=== PATIENT | male | born 1940 | race Caucasian/White ===

== ENCOUNTER 2016-08-06 11:35 | Outpatient (CLI) | payer MEDICARE, OTHER | END 2016-08-06 11:36 | disposition home or self-care (01) | DX: I95.1 Orthostatic hypotension (principal); I35.0 Nonrheumatic aortic (valve) stenosis ==

== ENCOUNTER 2016-09-22 13:50 | Outpatient (CLI) | payer MEDICARE, OTHER | END 2016-09-22 13:51 | disposition home or self-care (01) | DX: R00.2 Palpitations (principal); R42 Dizziness and giddiness ==

== ENCOUNTER 2017-06-03 16:32 | Outpatient (CLI) | payer MEDICARE, OTHER | END 2017-06-03 16:33 | disposition critical access hospital (66) | LOC: EMS 16:32 | PROVIDERS: ATTEND Surgery | DX: M79.621 Pain in right upper arm (principal); R11.0 Nausea; R20.0 Anesthesia of skin; W10.9XXA Fall (on) (from) unspecified stairs and steps, initial encounter; Y92.414 Local residential or business street as the place of occurrence of the external cause | CPT/HCPCS: A0425; A0427 ==

== ENCOUNTER 2017-06-03 17:15 | Emergency (ER) | payer MEDICARE, OTHER ==
--- NOTE | 2017-06-03 17:27 | ED Physician Documentation ---
History of Present Illness - Stated complaint Stated Complaint: GLF - History obtained from History obtained from: Patient, EMS - History of Present Illness Timing: How many hours ago (1) Pain level max: 8 Pain level now: 4 Improved by: rest Worsened by: moving - Additonal information Additional information: Patient is a 77-year-old gentleman who tripped and fell coming out of the store in [place], landed on the right arm and now has pain and deformity to the right upper arm. He was brought to the emergency department by EMS. Received 250 mcg of fentanyl en route. Pain is well controlled. Did not strike his head. No loss of consciousness. No other complaints of pain. Review of Systems Cardiac: denies: Chest pain / pressure Respiratory: denies: Cough GI: denies: Abdominal Pain, Vomiting Musculoskeletal: denies: Neck pain, Back pain Neurologic: denies: Focal weakness, Numbness, Syncope, Seizure, Confused, Headache, Head injury, LOC PD PAST MEDICAL HISTORY - Past Medical History Past Medical History: Yes Cardiovascular: Hypertension Respiratory: Sleep apnea : Benign prostate hypertrophy Psych: Depression, Anxiety Musculoskeletal: Osteoarthritis Derm: None - Past Surgical History HEENT: Tonsil/Adenoidectomy - Present Medications Home Medications: Ambulatory Orders Medication Instructions Recorded Confirmed Aspirin [Aspir 81] 81 mg PO DAILY 12/12/13 06/03/17 Doxazosin Mesylate 8 mg PO DAILY 12/12/13 06/03/17 FLUoxetine [PROzac] 20 mg PO DAILY 12/12/13 06/03/17 Lisinopril 20 mg PO DAILY 12/12/13 06/03/17 Hydrocodone/Acetaminophen 1 - 2 each PO Q6H PRN #14 tablet 06/03/17 [Hydrocodon-Acetaminophen 5-325] - Allergies Allergies/Adverse Reactions: Allergies Allergy/AdvReac Type Severity Reaction Status Date / Time No Known Drug Allergies Allergy Verified 12/12/13 11:10 PD ED PE NORMAL - Vitals Vital signs reviewed: Yes - General General: Alert and oriented X 3, No acute distress, Well developed/nourished - HEENT HEENT: Atraumatic, PERRL, EOMI, Ears normal, Moist mucous membranes, Other ( small abrasion on the chin.) - Neck Neck: Supple, no meningeal sign, No bony TTP, Other (FROM without pain) - Cardiac Cardiac: RRR, Strong equal pulses - Respiratory Respiratory: No respiratory distress, Clear bilaterally - Abdomen Abdomen: Soft, Non tender, Non distended - Back Back: No spinal TTP - Derm Derm: Warm and dry - Extremities Extremities: Other (TTP along the length of the R humerus. TTP about the R shoulder. NVI including radial artery and axillary nerve. deformity present at the shoulder. Abrasion to the R knee. no bony tenderness. normal gait. ) - Neuro Neuro: Alert and oriented X 3, safety advisor 2-12 intact, No motor deficit, No sensory deficit, Normal speech Eye Opening: Spontaneous Motor: Obeys Commands Verbal: Oriented GCS Score: 15 - Psych Psych: Normal mood, Normal affect Results - Vitals Vitals: Vital Signs - 24 hr 12//17 17:24 Temperature 36.4 C L Heart Rate 57 L Respiratory 15 Rate Blood Pressure 112/97 H O2 Saturation 96 Oxygen O2 Source Room air - Rads (name of study) R shoulder xray Radiology: Prelim report reviewed, EMP read contemporaneously, See rad report ( Anterior shoulder dislocation. Possible Hill-Sachs fracture of the humeral head) R shoulder xray 2 Radiology: Prelim report reviewed, EMP read contemporaneously, See rad report ( Interval reduction right anterior shoulder dislocation. ) Procedures - Reduction Body part reduced: Right, Shoulder Fracture or dislocation: Dislocation Anesthesia: Dilaudid (1mg) Shoulder reduction technique: Other (crow technique) Reduction aftercare: NV intact, Xray confirms reduction, Alignment improved, Sling, Patient tolerated well PD MEDICAL DECISION MAKING - ED course Complexity details: reviewed results, re-evaluated patient, considered differential, d/w patient, d/w family ED course: Patient is a 77-year-old gentleman who tripped and fell today on the street. Sustained a dislocation of the right shoulder. This was reduced. Tolerated well. Neurovascularly intact including the axillary nerve after reduction. Placed in a sling and will have him follow-up with orthopedics. Pain well controlled. Will prescribe pain medication for home. No evidence of intracranial hemorrhage, skull fracture or spinal fracture. Will continue supportive care and follow-up with orthopedics and his doctor. Patient counseled regarding signs and symptoms for which I believe and urgent re- evaluation would be necessary. Patient with good understanding of and agreement to plan and is comfortable going home at this time This document was made in part using voice recognition software. While efforts are made to proofread this document, sound alike and grammatical errors may occur. Departure - Departure Disposition: 01 Home, Self Care Clinical Impression: Shoulder dislocation Qualifiers: Encounter type: initial encounter Laterality: right Qualified Code(s): S43.004A - Unspecified dislocation of right shoulder joint, initial encounter Knee abrasion Qualifiers: Encounter type: initial encounter Laterality: right Qualified Code(s): S80.211A - Abrasion, right knee, initial encounter Abrasion of chin Qualifiers: Encounter type: initial encounter Qualified Code(s): S00.81XA - Abrasion of other part of head, initial encounter Condition: Good Instructions: ED Dislocation Shoulder Redu Follow-Up: Erin Ruelas ARNP [Primary Care Provider] - Within 1 week [facility] [Provider Group] - Within 1 week (call for an appointment) Prescriptions: Hydrocodone/Acetaminophen [Hydrocodon-Acetaminophen 5-325] 1 - 2 each PO Q6H PRN #14 tablet PRN Reason: pain Comments: Use the sling until released by orthopedics. Return if you worsen. Do not drink alcohol or drive while on narcotic pain medicine. Note that many narcotic pain relievers also contain tylenol/acetaminophen. Please ensure that your total dose of acetaminophen from all sources does not exceed 3 grams (3000mg) per day. You may constipated on this medication, take a stool softener such as "Colace" twice a day while you are on it. Also recommend a rxdm-nrl-ksllczs laxative such as senna or MiraLAX any day that you do not have a bowel movement. If you received narcotic pain medication in the emergency department, do not drive or operate machinery for the next 24 hours. Discharge Date/Time: 06/03/17 18:38
[2017-06-03 17:28] VITALS: BP 112/97
[2017-06-03] MEDS ORDERED: HYDROmorphone 1 MG/ML SYRINGE IVP STA (17:33)
--- NOTE | 2017-06-03 17:56 | XRAY Preliminary Report ---
Exam: XR SHOULDER 2 VIEW RT IMPRESSION: Anterior shoulder dislocation. Possible Hill-Sachs fracture of the humeral head. [facility] SITE ID: [id number]
--- NOTE | 2017-06-03 17:58 | XRAY Report ---
EXAM: RIGHT SHOULDER RADIOGRAPHY EXAM DATE: 06/03/2017 05:46 PM. CLINICAL HISTORY: Fall, R arm pain. COMPARISON: 01/20/2012. TECHNIQUE: 2 views. FINDINGS: Bones: Suspected Hill-Sachs fracture of the humeral head. Joints: Anterior humeral dislocation. Degenerative changes of the acromioclavicular joint. Soft tissues: The visualized hemithorax is unremarkable. No soft tissue swelling. IMPRESSION: Anterior shoulder dislocation. Possible Hill-Sachs fracture of the humeral head. [facility] Referring Provider Line: [phone] SITE ID: [id number]
--- NOTE | 2017-06-03 18:20 | XRAY Preliminary Report ---
Exam: XR SHOULDER 2 VIEW RT IMPRESSION: Interval reduction right anterior shoulder dislocation. [facility] SITE ID: [id number]
--- NOTE | 2017-06-03 18:23 | XRAY Report ---
EXAM: RIGHT SHOULDER RADIOGRAPHY EXAM DATE: 06/03/2017 06:09 PM. CLINICAL HISTORY: Post reduction. COMPARISON: 06/03/2017. TECHNIQUE: 2 views. FINDINGS: Bones: No acute fracture. Joints: Interval reduction right anterior shoulder dislocation. Soft Tissues: No unexpected soft tissue findings. IMPRESSION: Interval reduction right anterior shoulder dislocation. [facility] Referring Provider Line: [phone] SITE ID: [id number]
== END 2017-06-03 18:38 | disposition home or self-care (01) ==
LOC: EDUNIT# → ED 17:15 → SUPCPDRO 17:15 → ED 18:38
DX: S43.014A Anterior dislocation of right humerus, initial encounter (principal); S80.211A Abrasion, right knee, initial encounter; S00.81XA Abrasion of other part of head, initial encounter; W10.8XXA Fall (on) (from) other stairs and steps, initial encounter; Y92.512 Supermarket, store or market as the place of occurrence of the external cause; I10 Essential (primary) hypertension; Z79.82 Long term (current) use of aspirin
CPT/HCPCS: 23650; 73030; 96374; 99283; 99284; J1170

== ENCOUNTER 2017-07-21 15:26 | Outpatient (CLI) | payer MEDICARE, OTHER ==
--- NOTE | 2017-07-23 13:05 | MRI Report ---
EXAM: RIGHT SHOULDER MRI WITHOUT CONTRAST EXAM DATE: 07/21/2017 04:36 PM. CLINICAL HISTORY: Right shoulder pain. Dislocation on 06/03/2017. COMPARISON: 06/03/2017 radiograph, MRI 06/15/2017. TECHNIQUE: Multiplanar, multisequence T1-weighted and fluid-sensitive sequences of the shoulder witho ut contrast. Other: None. FINDINGS: Acromioclavicular Region: The acromion is type II. Moderate acromioclavicular osteoarthropathy as lc denced by bony hypertrophy of the distal clavicle and a small effusion. The coracoacromial and coraco clavicular ligaments are intact. A mild amount of fluid is in the subacromial/subdeltoid bursa. Glenohumeral Region: No subluxation. No effusion or loose bodies. A partial-thickness undersurface te ar in the posterior superior labrum can be seen on series 701, image 14. The articular cartilage is m inimally thin. The glenohumeral ligaments and joint capsule are unremarkable. Bone Marrow: The patient has Hill-Sachs deformity that is worsened since the prior examination. Musculature/Rotator Cuff: The subscapularis tendon is unremarkable. The supraspinatus tendon has a wo rsened complex tear since the prior examination. The anterior 1 cm of the tendon has a full-thickness tear which is 1.1 cm in width. The posterior portion of the tendon has a partial-thickness, joint-si ded tear that is 1.4 cm in length and 60% in thickness (701/10). The anterior infraspinatus tendon constantino s a partial-thickness, joint-sided tear that is 1.5 cm in width and 1.3 cm in length. It is 50% in th ickness. This tear has worsened. The teres minor tendon is intact. No fatty atrophy. The patient has a benign 3.3-cm lipoma within the posterior deltoid muscle. Biceps Tendon: The intraarticular biceps tendon is irregular and this is new compared to prior examin ation. Other: The subcutaneous tissues are unremarkable. IMPRESSION: 1. Moderate acromioclavicular osteoarthropathy. 2. Mild subacromial/subdeltoid bursitis. 3. Small partial tear of the superior labrum. 4. Worsened Hill-Sachs deformity. 5. Worsened tears of the supraspinatus and infraspinatus tendons. 6. New mild biceps tendinosis. [facility] MUSCULOSKELETAL RADIOLOGY SECTION Referring Provider Line: [phone] SITE ID: [id number]
== END 2017-07-21 15:27 | disposition home or self-care (01) ==
LOC: DI 15:26
PROVIDERS: ATTEND Orthopaedic Surgery
DX: M19.011 Primary osteoarthritis, right shoulder (principal); M75.51 Bursitis of right shoulder; S43.491A Other sprain of right shoulder joint, initial encounter; M21.821 Other specified acquired deformities of right upper arm; M75.101 Unspecified rotator cuff tear or rupture of right shoulder, not specified as traumatic; M67.88 Other specified disorders of synovium and tendon, other site

== ENCOUNTER 2017-08-17 11:46 | Outpatient (CLI) | payer MEDICARE, OTHER | END 2017-08-17 11:47 | disposition home or self-care (01) | LOC: DI 11:46 | PROVIDERS: ATTEND Registered Nurse | DX: I35.0 Nonrheumatic aortic (valve) stenosis (principal); I51.7 Cardiomegaly; I77.810 Thoracic aortic ectasia | CPT/HCPCS: 93306 ==

== ENCOUNTER 2018-09-15 13:18 | Outpatient (CLI) | payer MEDICARE, OTHER ==
--- NOTE | 2018-09-17 09:45 | Ultrasound Report ---
Reason: BENIGN PROSTATIC HYPERPLASIA WITH URINARY OBSTRUCT Procedure Date: 09/15/2018 Accession Number: [id number] / [id number] Procedure: US - Retroperitoneal CPT Code: FULL RESULT: EXAM: RENAL ULTRASOUND EXAM DATE: 09/15/2018 01:59 PM. CLINICAL HISTORY: Benign prostatic hyperplasia with urinary obstruct. COMPARISON: ABDOMEN/PELVIS W/ 07/03/2015 10:57 AM. TECHNIQUE: Real-time scanning was performed with static images obtained. FINDINGS: Right Kidney: 10.9 x 5.3 x 5.4 cm. Scattered hyperechoic foci present in the right renal pelvis with no significant posterior acoustic shadowing. No hydronephrosis or contour-deforming renal mass. Left Kidney: 12.3 x 5.3 x 5.4 cm. Scattered hyperechoic foci present in the left renal pelvis with no significant posterior acoustic shadowing. No hydronephrosis or contour-deforming renal mass. Bladder: Bilateral jets seen. The prevoid bladder volume was 145.7 cc. The postvoid bladder volume was 20.5 cc. Other: Markedly enlarged prostate gland measuring 6.9 x 5.4 x 5.9 cm, 115.4 cc with significant mass-effect upon the bladder base. No definite mass noted. IMPRESSION: 1. No renal mass or hydronephrosis. Possible nonobstructing bilateral renal stones versus vascular calcifications. 2. Normal bladder. 3. Marked prostate enlargement with mass-effect upon the bladder base. [facility]
== END 2018-09-15 13:19 | disposition home or self-care (01) ==
LOC: DI 13:18
PROVIDERS: ATTEND Urology
DX: N40.1 Benign prostatic hyperplasia with lower urinary tract symptoms (principal); N13.8 Other obstructive and reflux uropathy; N39.0 Urinary tract infection, site not specified; Z87.898 Personal history of other specified conditions
CPT/HCPCS: 76770

== ENCOUNTER 2018-09-25 12:42 | Outpatient (CLI) | payer MEDICARE, OTHER | END 2018-09-25 12:43 | disposition home or self-care (01) | LOC: DI 12:42 | PROVIDERS: ATTEND Registered Nurse | DX: I35.0 Nonrheumatic aortic (valve) stenosis (principal); I07.1 Rheumatic tricuspid insufficiency | CPT/HCPCS: 93306 ==

== ENCOUNTER 2018-10-11 15:10 | Outpatient (CLI) | payer MEDICARE, OTHER | END 2018-10-11 15:11 | disposition home or self-care (01) | LOC: RT 15:10 | PROVIDERS: ATTEND Internal Medicine Cardiovascular Disease | DX: I10 Essential (primary) hypertension (principal) | CPT/HCPCS: 93005 ==

== ENCOUNTER 2019-02-19 10:52 | Outpatient (CLI) | payer MEDICARE, OTHER ==
[2019-02-19] MEDS ORDERED: IOVERSOL 320 50 ML VIAL ONE (11:21)
[2019-02-19] MEDS ORDERED: IOVERSOL 320 100 ML VIAL IVP ONE ×2 (11:21→19:03)
[2019-02-19 11:34] LABS: ALBUMIN 3.9 g/dL (3.2-5.5); ALBUMIN/GLOBULIN RATIO 1.2 (1.0-2.2); BILIRUBIN,TOTAL 0.9 mg/dL (0.2-1.0); CALCIUM 8.9 mg/dL (8.5-10.3); CREATININE 1.2 mg/dL (0.6-1.2); TOTAL PROTEIN 7.2 g/dL (6.7-8.2)
--- NOTE | 2019-02-19 14:22 | CT Report ---
Reason: RIGHT LOWER QUADRANT Procedure Date: 02/19/2019 Accession Number: [id number] / [id number] Procedure: CT - Abdomen/Pelvis W CPT Code: FULL RESULT: EXAM: CT ABDOMEN AND PELVIS EXAM DATE: 02/19/2019 12:36 PM. CLINICAL HISTORY: Right lower quadrant. COMPARISONS: ABDOMEN/PELVIS W/ 07/03/2015 10:57 AM. TECHNIQUE: Routine helical CT imaging was performed through the abdomen and pelvis. IV contrast: Opti-320 100 mL. Enteric contrast: Yes. Reconstructions: Coronal and sagittal. In accordance with CT protocol optimization, one or more of the following dose reduction techniques were utilized for this exam: automated exposure control, adjustment of mA and/or KV based on patient size, or use of iterative reconstructive technique. FINDINGS: Lung Bases: Stable subpleural 3 mm noncalcified nodule lateral left lower lobe and stable subpleural 2 mm nodule posterior left lung base. No new consolidations or nodules detected at either lung base. Mural calcification of the mitral annulus. Liver: Stable scattered subcentimeter low attenuation foci in the left hepatic lobe too small to characterize and statistically compatible with cysts. Gallbladder/Bile Ducts: Unremarkable. Spleen: Normal. Pancreas: Normal. Adrenal Glands: Normal. Kidneys: Normal. No masses or hydronephrosis. Peritoneal Cavity/Bowel: Moderate diverticulosis throughout the length of the sigmoid, without bowel obstruction or pericolonic changes to indicate diverticulitis. No evidence of colitis. Normal appearance of appendix. No free air or free fluid. No pathologically enlarged lymph nodes. Pelvic Organs: Normal. The bladder and visualized pelvic organs are within normal limits. The prostate measures 4.6 x 5.1 cm transversely. Vasculature: No aneurysms or other significant abnormality. Bones: Bilateral L5 pars interarticularis defects, without pathologic subluxation. Other: None. IMPRESSION: Sigmoid diverticulosis, without evidence of diverticulitis or bowel obstruction. [facility]
[2019-02-19] MEDS ORDERED: IOVERSOL 320 50 ML VIAL PO ONE (19:03)
== END 2019-02-19 10:53 | disposition home or self-care (01) ==
LOC: DI 10:52
PROVIDERS: ATTEND Nurse Practitioner Family
DX: R10.31 Right lower quadrant pain (principal); R94.4 Abnormal results of kidney function studies; K57.30 Diverticulosis of large intestine without perforation or abscess without bleeding
CPT/HCPCS: 36415; 74177; 80053; Q9967

== ENCOUNTER 2019-02-27 12:02 | Outpatient (CLI) | payer MEDICARE, OTHER ==
--- NOTE | 2019-03-01 23:39 | CT Report ---
Reason: MULTIPLE NODULES OF LUNG Procedure Date: 02/27/2019 Accession Number: [id number] / [id number] Procedure: CT - CHEST WO CPT Code: FULL RESULT: EXAM: CT CHEST EXAM DATE: 02/27/2019 12:25 PM. CLINICAL HISTORY: MULTIPLE NODULES OF LUNG. COMPARISONS: ABDOMEN/PELVIS W/ 02/19/2019 12:26 PM ABDOMEN/PELVIS W/ 07/03/2015 10:57 AM ABDOMEN/PELVIS W/ 05/24/2013 11:21 AM. TECHNIQUE: Routine helical CT imaging was performed through the chest. IV contrast: None. Reconstructions: Coronal and sagittal. In accordance with CT protocol optimization, one or more of the following dose reduction techniques were utilized for this exam: automated exposure control, adjustment of mA and/or KV based on patient size, or use of iterative reconstructive technique. FINDINGS: Lungs/Pleura: There is a small pulmonary nodule in the right middle lobe on series 4 image 38 measuring 4 mm x 3 mm. This is unchanged from prior studies. The small pulmonary nodule the periphery of the left lower lobe on series 4 image 44 is unchanged. This measures 6 mm x 4 mm. There is a tiny pleural-based nodules in the left lower lobe on series 4 image 49. This measures 3 mm and is unchanged. There are no acute infiltrates. There are no pleural effusions. Mediastinum: The heart is not enlarged. There are extensive atherosclerotic vascular calcifications of the coronary arteries. There is calcification of the mitral valve annulus. The diameter of the ascending thoracic aorta measures 41 mm in the diameter of the descending thoracic aorta measures 44 mm. There is no evidence for dissection. Bones: Unremarkable. Visualized Abdomen: Unremarkable. Other: None. IMPRESSION: 1. Stable appearance of the 3 small pulmonary nodules. No change when compared to the study from 2012. These are benign and no further investigation nor imaging is necessary. 2. Advanced atherosclerotic vascular calcifications of the coronary arteries and calcification of the mitral valve annulus. [facility]
== END 2019-02-27 12:03 | disposition home or self-care (01) ==
LOC: DI 12:02
PROVIDERS: ATTEND Nurse Practitioner Family
DX: R91.8 Other nonspecific abnormal finding of lung field (principal); I25.10 Atherosclerotic heart disease of native coronary artery without angina pectoris
CPT/HCPCS: 71250

== ENCOUNTER 2019-10-20 18:05 | Outpatient (CLI) | payer MEDICARE, OTHER | END 2019-10-20 18:06 | disposition short-term general hospital (02) | LOC: EMS 18:05 | PROVIDERS: ATTEND Surgery | DX: R55 Syncope and collapse (principal); R06.02 Shortness of breath; R07.9 Chest pain, unspecified | CPT/HCPCS: A0425; A0427 ==

== ENCOUNTER 2019-10-25 15:32 | Outpatient (CLI) | payer MEDICARE, OTHER ==
--- NOTE | 2019-10-25 18:58 | Ultrasound Report ---
Reason: PHLEBITIS AND THROMBOPHLEBITIS Procedure Date: 10/25/2019 Accession Number: [id number] / [id number] Procedure: US - Duplex Ext Veins Right CPT Code: Addended Final Report FULL RESULT: EXAM: RIGHT UPPER EXTREMITY VENOUS ULTRASOUND EXAM DATE: 10/25/2019 04:20 PM. CLINICAL HISTORY: PHLEBITIS AND THROMBOPHLEBITIS. COMPARISON: None. TECHNIQUE: Real-time sonographic vascular imaging was performed by the contact assembler through the upper extremity utilizing both color-flow and Doppler spectral analysis. Multiple fundraising sale representative static images were saved for review. FINDINGS: Internal Jugular Vein (IJV): Normal. Subclavian Vein (SCV): Normal. Axillary Vein : Normal. Cephalic Vein (superficial vein): Not well seen. Basilic Vein (superficial vein): Occlusive thrombus in the medial basilic vein at the level of the antecubital fossa. Brachial Vein: Normal. Contralateral Side: Subclavian Vein: Normal. Other: None. IMPRESSION: 1. No evidence for deep vein thrombosis. 2. Occlusive thrombus in the medial basilic vein in the region of the antecubital fossa. [facility] The call report notification system was initiated by Dr. Francie Mohamud at 06:56 PM on 10/25/2019. ADDENDUM: 10/25/19 19:00 The above call report findings were discussed with Dr. Ruelas by Dr. Francie Mohamud at 07:00 PM on 10/25/2019.
== END 2019-10-25 15:33 | disposition home or self-care (01) ==
LOC: DI 15:32
PROVIDERS: ATTEND Registered Nurse
DX: I82.611 Acute embolism and thrombosis of superficial veins of right upper extremity (principal)

== ENCOUNTER 2020-01-22 14:43 | Outpatient (CLI) | payer MEDICARE, OTHER ==
--- NOTE | 2020-01-22 15:53 | Ultrasound Report ---
PROCEDURE: Testicle INDICATIONS: LT TESTICULAR PAIN TECHNIQUE: Real-time scanning was performed of the scrotum and testicles, with image documentation. Color and p ulse Doppler interrogation was performed of both testicles. COMPARISON: None. FINDINGS: Right: Testicle is normal in size at 5.2 x 3.0 x 3.4 cm, and homogenous in echotexture. Epididymis is normal in overall size and morphology. There is a presumed epididymal cyst or spermatocele measuri ng 5 mm No hydrocele or varicoceles. Overlying scrotal skin is normal in thickness. Left: Testicle is normal in size at 4.3 x 3.0 x 3.3 cm, and is diffusely heterogeneous, with areas o f increased vascularity. Epididymis is normal in overall size and morphology. Complex left hydrocele with internal echoes, and septations. No varicoceles. Overlying scrotal skin is thickened. Doppler: Color and pulse Doppler demonstrate normal and asymmetric increased arterial flow in the le ft testicle. IMPRESSION: Markedly heterogeneous appearance of the left testicle, with hyperemia. Findings probably reflect inf ectious or inflammatory orchitis (versus other probably less likely posttraumatic or neoplastic etiol ogies). Please correlate clinically with urinalysis. Recommend short interval testicular ultrasound f ollow-up to document resolution after treatment. Left hydrocele with complex appearance and septations, raising possibility of pyocele. Left scrotal skin thickening Incidental right epididymal cyst or spermatocele Reviewed by: Francesco Morelos MD on 01/22/2020 3:52 PM PDT Approved by: Francesco Morelos MD on 01/22/2020 3:52 PM PDT Station ID: [id number]
== END 2020-01-22 14:44 | disposition home or self-care (01) ==
LOC: DI 14:43
PROVIDERS: ATTEND Nurse Practitioner Family
DX: R68.89 Other general symptoms and signs (principal); N43.2 Other hydrocele
CPT/HCPCS: 76870

== ENCOUNTER 2020-02-07 12:37 | Outpatient (CLI) | payer MEDICARE, OTHER | END 2020-02-07 12:38 | disposition home or self-care (01) | LOC: RT 12:37 | PROVIDERS: ATTEND Nurse Practitioner | DX: I35.0 Nonrheumatic aortic (valve) stenosis (principal); Z95.3 Presence of xenogenic heart valve | CPT/HCPCS: 93005 ==

== ENCOUNTER 2020-02-11 10:33 | Outpatient (CLI) | payer MEDICARE, OTHER ==
[2020-02-11 11:52] LABS: BASOPHILS % (AUTO) 0.2 %; EOSINOPHILS # (AUTO) 0.1 10^3/uL (0.0-0.7); EOSINOPHILS % (AUTO) 1.1 %; HGB - HEMOGLOBIN 11.6 g/dL (14.0-18.0); LYMPHOCYTES # (AUTO) 0.6 10^3/uL (1.5-3.5); LYMPHOCYTES % (AUTO) 10.2 %; MEAN CORPUSCULAR HEMOGLOBIN 26.4 pg (27.0-31.0); MEAN CORPUSCULAR HGB CONC 30.4 g/dL (32.0-36.0); MEAN CORPUSCULAR VOLUME 86.6 fL (80.0-94.0); MEAN PLATELET VOLUME 11.2 fL (7.4-11.4); MONOCYTES # (AUTO) 0.6 10^3/uL (0.0-1.0); MONOCYTES % (AUTO) 10.4 %; NEUTROPHILS # (AUTO) 4.3 10^3/uL (1.5-6.6); NEUTROPHILS % (AUTO) 77.7 %; PLT - PLATELET COUNT 159 10^3/uL (130-450); RED CELL DISTRIBUTION WIDTH 15.9 % (12.0-15.0); WHITE BLOOD COUNT 5.6 x10^3/uL (4.8-10.8)
[2020-02-11 12:19] LABS: % IRON SATURATION 32 % (20-50); IRON 106 ug/dL (45-182); TOTAL IRON BINDING CAPACITY 333 ug/dL (250-450); TRANSFERRIN 238 mg/dL (180-329)
== END 2020-02-11 10:34 | disposition home or self-care (01) ==
LOC: DI 10:33
PROVIDERS: ATTEND Nurse Practitioner
DX: I35.0 Nonrheumatic aortic (valve) stenosis (principal); Z95.3 Presence of xenogenic heart valve; D64.9 Anemia, unspecified; I07.1 Rheumatic tricuspid insufficiency
CPT/HCPCS: 36415; 82565; 82728; 83540; 84466; 85018; 85025; 93308

== ENCOUNTER 2020-08-31 11:58 | Outpatient (CLI) | payer MEDICARE, OTHER | END 2020-08-31 11:59 | disposition critical access hospital (66) | LOC: EMS 11:58 | PROVIDERS: ATTEND Emergency Medicine | DX: R00.0 Tachycardia, unspecified (principal) | CPT/HCPCS: A0425; A0429 ==

== ENCOUNTER 2020-08-31 12:21 | Emergency (ER) | payer MEDICARE, OTHER ==
--- NOTE | 2020-08-31 12:31 | ED Physician Documentation ---
History of Present Illness - Stated complaint Stated Complaint: AFIB/RVR - Chief complaint Chief Complaint: Cardiac - History obtained from History obtained from: Patient - History of Present Illness Timing: Today Pain level max: 0 Pain level now: 0 - Additonal information Additional information: Patient is a 80-year-old male with a longstanding history of atrial fibrillation, states felt palpitations today, these were intermittent for about an hour. He states that they have not resolved and he feels normal now. Has a history of cardiac stents 13 months ago at [facility]. Had his aortic valve replaced about 7 months ago also at [facility]. He states he called the nurse advice line and they recommended he come here for evaluation. His customer greeter is Dr. Jermaine Galarza at [facility] Review of Systems Ten Systems: 10 systems reviewed and negative Constitutional: denies: Fever, Chills Ears: denies: Ear pain Cardiac: denies: Chest pain / pressure, Calf pain Respiratory: denies: Dyspnea, Cough, Wheezing GI: denies: Abdominal Pain, Vomiting, Diarrhea Skin: denies: Rash Musculoskeletal: denies: Neck pain, Back pain Neurologic: denies: Headache PD PAST MEDICAL HISTORY - Past Medical History Cardiovascular: Hypertension, SC, Atrial fibrillation Respiratory: Sleep apnea : Benign prostate hypertrophy Psych: Depression, Anxiety Musculoskeletal: Osteoarthritis Derm: None - Past Surgical History Cardiovascular: Coronary stent, Valve replacement (Aortic valve) HEENT: Tonsil/Adenoidectomy - Present Medications Home Medications: Ambulatory Orders Medication Instructions Recorded Confirmed Atorvastatin Calcium 08/31/20 Clopidogrel [Plavix] 08/31/20 08/31/20 Finasteride [Proscar] 08/31/20 Fluoxetine HCl [Prozac] 08/31/20 Losartan Potassium 08/31/20 Nitrofurantoin [Macrobid] 08/31/20 Pantoprazole Sodium [Protonix] 08/31/20 Tamsulosin [Flomax] 08/31/20 amLODIPine [Norvasc] 08/31/20 - Allergies Allergies/Adverse Reactions: Allergies Allergy/AdvReac Type Severity Reaction Status Date / Time No Known Drug Allergies Allergy Verified 08/31/20 12:27 - Social History Does the pt smoke?: No Smoking Status: Never smoker Does the pt drink ETOH?: Yes PD ED PE NORMAL - Vitals Vital signs reviewed: Yes - General General: Alert and oriented X 3, No acute distress, Well developed/nourished - HEENT HEENT: Moist mucous membranes - Neck Neck: Supple, no meningeal sign - Cardiac Cardiac: RRR, Strong equal pulses - Respiratory Respiratory: No respiratory distress, Clear bilaterally - Abdomen Abdomen: Soft, Non tender, Non distended - Derm Derm: Warm and dry - Extremities Extremities: No edema - Neuro Neuro: Alert and oriented X 3 - Psych Psych: Normal mood, Normal affect Results - Vitals Vitals: Vital Signs - 24 hr 08/31/20 08/31/20 12:26 13:02 Temperature 36.2 C L Heart Rate 83 77 Respiratory 18 22 Rate Blood Pressure 165/108 H 140/80 H O2 Saturation 100 98 Oxygen O2 Source Room air - EKG (time done) 1230 Rate: Rate (enter#) (77) Rhythm: Atrial fibrillation, Other (PVC) Intervals: LBBB 1307 Rate: Rate (enter#) (54) Rhythm: NSR Intervals: Prolonged WA, LBBB - Labs Labs: Laboratory Tests 08/31/20 08/31/20 08/31/20 12:28 12:34 12:34 WBC 7.8 RBC 5.08 Hgb 14.3 Hct 43.8 MCV 86.2 MCH 28.1 MCHC 32.6 RDW 13.6 Plt Count 170 MPV 11.1 Neut # (Auto) 6.1 Lymph # (Auto) 0.8 L [place] # (Auto) 0.7 Eos # (Auto) 0.1 Baso # (Auto) 0.0 Absolute Nucleated RBC 0.00 Nucleated RBC % 0.0 Sodium 133 L Potassium 4.2 Chloride 100 L Carbon Dioxide 24 Anion Gap 9.0 BUN 18 Creatinine 1.1 Estimated GFR (MDRD) 65 L Glucose 100 Calcium 9.0 Phosphorus 3.1 Magnesium 2.0 Total Bilirubin 0.9 AST 20 ALT 17 Alkaline Phosphatase 68 Total Protein 7.3 Albumin 4.3 Globulin 3.0 Albumin/Globulin Ratio 1.4 - Rads (name of study) cxr Radiology: Prelim report reviewed, EMP read contemporaneously, See rad report (No acute pulmonary process) PD MEDICAL DECISION MAKING - ED course Complexity details: reviewed results, re-evaluated patient, considered differential, d/w patient ED course: Patient initially was in atrial fibrillation. Given a single dose of diltiazem as his heart rate was around 100, this converted him back to a sinus rhythm. Patient is asymptomatic. No acute lab findings. Normal chest x-ray. Patient counseled regarding signs and symptoms for which I believe and urgent re- evaluation would be necessary. Patient with good understanding of and agreement to plan and is comfortable going home at this time This document was made in part using voice recognition software. While efforts are made to proofread this document, sound alike and grammatical errors may occur. Departure - Departure Disposition: 01 Home, Self Care Clinical Impression: Atrial fibrillation with controlled ventricular response Condition: Good Instructions: ED Afib Follow-Up: Erin Ruelas ARNP [Primary Care Provider] - Within 1 week Jermaine Galarza MD [Provider Admit Priv/Credential] - Comments: Follow up with your doctor for further care. Return if you worsen. You have converted back into a normal sinus rhythm. You do have a baseline left bundle branch block on your EKG
[2020-08-31 12:39] LABS: BASOPHILS % (AUTO) 0.4 %; EOSINOPHILS # (AUTO) 0.1 10^3/uL (0.0-0.7); EOSINOPHILS % (AUTO) 1.1 %; HCT - HEMATOCRIT 43.8 % (42.0-52.0); HGB - HEMOGLOBIN 14.3 g/dL (14.0-18.0); LYMPHOCYTES # (AUTO) 0.8 10^3/uL (1.5-3.5); LYMPHOCYTES % (AUTO) 10.5 %; MEAN CORPUSCULAR HEMOGLOBIN 28.1 pg (27.0-31.0); MEAN CORPUSCULAR HGB CONC 32.6 g/dL (32.0-36.0); MEAN CORPUSCULAR VOLUME 86.2 fL (80.0-94.0); MEAN PLATELET VOLUME 11.1 fL (7.4-11.4); MONOCYTES # (AUTO) 0.7 10^3/uL (0.0-1.0); MONOCYTES % (AUTO) 9.2 %; NEUTROPHILS # (AUTO) 6.1 10^3/uL (1.5-6.6); NEUTROPHILS % (AUTO) 78.3 %; PLT - PLATELET COUNT 170 10^3/uL (130-450); RED BLOOD COUNT 5.08 10^6/uL (4.70-6.10); RED CELL DISTRIBUTION WIDTH 13.6 % (12.0-15.0); WHITE BLOOD COUNT 7.8 x10^3/uL (4.8-10.8)
[2020-08-31] MEDS ORDERED: diltiaZEM INJ 5 MG/ML VIAL IVP STA (12:39)
--- NOTE | 2020-08-31 12:45 | XRAY Report ---
PROCEDURE: Chest 1 View X-Ray INDICATIONS: palpitations TECHNIQUE: One view of the chest was acquired. COMPARISON: Chest x-ray 11/21/2013 FINDINGS: Surgical changes and devices: None. Lungs and pleura: No pleural effusions or pneumothorax. Lungs are clear. Mediastinum: Mediastinal contours appear normal. Heart size is enlarged. Bones and chest wall: No suspicious bony lesions. Overlying soft tissues appear unremarkable. IMPRESSION: No acute pulmonary process. Reviewed by: Sayra Soliman MD on 08/31/2020 12:44 PM PDT Approved by: Sayra Soliman MD on 08/31/2020 12:44 PM PDT Station ID: [id number]
[2020-08-31 12:49] LABS: ALBUMIN 4.3 g/dL (3.2-5.5); ALBUMIN/GLOBULIN RATIO 1.4 (1.0-2.2); BILIRUBIN,TOTAL 0.9 mg/dL (0.2-1.0); CREATININE 1.1 mg/dL (0.6-1.2); POTASSIUM 4.2 mmol/L (3.5-5.0); TOTAL PROTEIN 7.3 g/dL (6.7-8.2)
[2020-08-31 13:02] VITALS: BP 140/80
[2020-08-31 13:10] LABS: PHOSPHORUS 3.1 mg/dL (2.5-4.6)
== END 2020-08-31 13:24 | disposition home or self-care (01) ==
LOC: EDUNIT# → ED 12:21
DX: I48.91 Unspecified atrial fibrillation (principal); I44.7 Left bundle-branch block, unspecified; Z95.2 Presence of prosthetic heart valve; I10 Essential (primary) hypertension
CPT/HCPCS: 36415; 80053; 83735; 84100; 85025; 93005; 96374; 99283

== ENCOUNTER 2020-10-19 13:43 | Outpatient (CLI) | payer MEDICARE, OTHER ==
--- NOTE | 2020-10-19 14:45 | XRAY Report ---
PROCEDURE: Chest 2 View X-Ray INDICATIONS: PULMONARY NODULE TECHNIQUE: 2 view(s) of the chest. COMPARISON: 08/31/2020 chest plain film single view.. FINDINGS: Surgical changes and devices: None. Lungs and pleura: No pleural effusions or pneumothorax. Lungs are abnormal with pulmonary hyperexpa nsion.. Mediastinum: Mediastinal contours are normal. Heart size is normal. Valve replacement. Bones and chest wall: No suspicious bony abnormalities. Soft tissues appear unremarkable. IMPRESSION: Relatively large lung volumes, suspect COPD. No pulmonary mass lesion seen. If a pulmona ry mass had been identified by CT scanning follow-up by repeat CT scanning may be necessary to visual ize the same finding. The 09/06 chest plain film does not describe a pulmonary nodule. There is what a ppears to be a nipple shadow at the left lung base. Reviewed by: Derek James MD on 10/19/2020 2:44 PM PDT Approved by: Derek James MD on 10/19/2020 2:44 PM PDT Station ID: [id number]
== END 2020-10-19 13:44 | disposition home or self-care (01) ==
LOC: DI.S 13:43
PROVIDERS: ATTEND Specialist
DX: R91.8 Other nonspecific abnormal finding of lung field (principal)

== ENCOUNTER 2021-02-17 13:51 | Outpatient (CLI) | payer MEDICARE, OTHER ==
[2021-02-17 14:15] LABS: BASOPHILS % (AUTO) 0.3 %; EOSINOPHILS # (AUTO) 0.1 10^3/uL (0.0-0.7); EOSINOPHILS % (AUTO) 0.7 %; HCT - HEMATOCRIT 40.1 % (42.0-52.0); HGB - HEMOGLOBIN 12.9 g/dL (14.0-18.0); LYMPHOCYTES # (AUTO) 0.7 10^3/uL (1.5-3.5); LYMPHOCYTES % (AUTO) 10.6 %; MEAN CORPUSCULAR HEMOGLOBIN 27.7 pg (27.0-31.0); MEAN CORPUSCULAR HGB CONC 32.2 g/dL (32.0-36.0); MEAN CORPUSCULAR VOLUME 86.2 fL (80.0-94.0); MEAN PLATELET VOLUME 10.2 fL (7.4-11.4); MONOCYTES # (AUTO) 0.6 10^3/uL (0.0-1.0); MONOCYTES % (AUTO) 8.8 %; NEUTROPHILS # (AUTO) 5.5 10^3/uL (1.5-6.6); PLT - PLATELET COUNT 179 10^3/uL (130-450); RED BLOOD COUNT 4.65 10^6/uL (4.70-6.10); RED CELL DISTRIBUTION WIDTH 13.7 % (12.0-15.0); WHITE BLOOD COUNT 6.9 x10^3/uL (4.8-10.8)
[2021-02-17 14:31] LABS: ALBUMIN 4.2 g/dL (3.2-5.5); ALBUMIN/GLOBULIN RATIO 1.5 (1.0-2.2); BILIRUBIN,TOTAL 0.9 mg/dL (0.2-1.0); CALCIUM 9.1 mg/dL (8.5-10.3); CREATININE 1.2 mg/dL (0.6-1.2); MAGNESIUM 1.7 mg/dL (1.7-2.8); POTASSIUM 4.1 mmol/L (3.5-5.0)
== END 2021-02-17 13:52 | disposition home or self-care (01) ==
LOC: LAB 13:51
PROVIDERS: ATTEND Registered Nurse
DX: R53.83 Other fatigue (principal); I48.0 Paroxysmal atrial fibrillation
CPT/HCPCS: 36415; 80053; 83735; 84443; 84484; 85025; 87040

== ENCOUNTER 2021-12-16 10:46 | Outpatient (CLI) | payer MEDICARE, OTHER ==
[2021-12-16 11:19] LABS: ALBUMIN 4.2 g/dL (3.2-5.5); ALBUMIN/GLOBULIN RATIO 1.3 (1.0-2.2); BILIRUBIN,TOTAL 0.6 mg/dL (0.2-1.0); CALCIUM 9.4 mg/dL (8.5-10.3); CREATININE 1.2 mg/dL (0.6-1.2); POTASSIUM 3.8 mmol/L (3.5-5.0); TOTAL PROTEIN 7.4 g/dL (6.7-8.2)
== END 2021-12-16 10:47 | disposition home or self-care (01) ==
LOC: LAB 10:46
PROVIDERS: ATTEND Registered Nurse
DX: R60.0 Localized edema (principal); I48.0 Paroxysmal atrial fibrillation
CPT/HCPCS: 36415; 80053; 83880; 85379

== ENCOUNTER 2021-12-16 15:10 | Outpatient (CLI) | payer MEDICARE, OTHER ==
--- NOTE | 2021-12-16 17:37 | XRAY Report ---
PROCEDURE: Chest 2 View X-Ray INDICATIONS: EDEMA TECHNIQUE: 2 view(s) of the chest. COMPARISON: 10/19/2020 and 10/31/2020. FINDINGS: Surgical changes and devices: There is a valvular prosthesis projecting over the expected location of the mitral valve. Lungs and pleura: No pleural effusions or pneumothorax. Lungs are clear. Mediastinum: Mediastinal contours are normal. Heart size is normal. Bones and chest wall: No suspicious bony abnormalities. Soft tissues appear unremarkable. IMPRESSION: Chest without acute cardiopulmonary abnormalities. No focal airspace disease. No finding s to suggest pulmonary edema/CHF. Reviewed by: Quinn Billy MD on 12/16/2021 5:36 PM PDT Approved by: Quinn Billy MD on 12/16/2021 5:36 PM PDT Station ID: [id number]
== END 2021-12-16 15:11 | disposition home or self-care (01) ==
LOC: DI 15:10
PROVIDERS: ATTEND Registered Nurse
DX: R60.0 Localized edema (principal)

== ENCOUNTER 2022-01-05 02:09 | Outpatient (CLI) | payer MEDICARE, OTHER | END 2022-01-05 02:10 | disposition left against medical advice (07) | LOC: EMS 02:09 | DX: M25.552 Pain in left hip (principal) ==

== ENCOUNTER 2022-01-06 08:00 | Outpatient (CLI) | payer MEDICARE, OTHER ==
--- NOTE | 2022-01-06 17:01 | XRAY Report ---
PROCEDURE: Hip w/Pelvis 1V LT INDICATIONS: LEFT HIP PAIN TECHNIQUE: AP pelvis with lateral view(s) of the left hip(s). COMPARISON: None. FINDINGS: Bones: No fractures or dislocations. Pelvic ring appears intact. No suspicious bony lesions. Mode rate bilateral hip joint osteoarthritis. Likely traction enthesophyte at the left ischio tuberosity. Possible calcific tendinosis of the left abductor attachments. Multiple sacral spondylosis. Soft tissues: The visualized bowel gas pattern is normal. No suspicious soft tissue calcifications. Vascular calcifications. IMPRESSION: No acute radiographic abnormality. Moderate bilateral hip joint osteoarthritis changes. Other degenerative changes outlined above. Reviewed by: Angel Lima MD on 01/06/2022 5:00 PM PDT Approved by: Angel Lima MD on 01/06/2022 5:00 PM PDT Station ID: [id number]
== END 2022-01-06 23:59 | disposition home or self-care (01) ==
LOC: DI.S 08:00
PROVIDERS: ATTEND Registered Nurse
DX: M16.0 Bilateral primary osteoarthritis of hip (principal); M47.898 Other spondylosis, sacral and sacrococcygeal region

== ENCOUNTER 2022-02-18 16:37 | Outpatient (CLI) | payer MEDICARE, OTHER ==
--- NOTE | 2022-02-19 04:04 | CT Report ---
PROCEDURE: CHEST WO INDICATIONS: LUNG NODULES TECHNIQUE: Noncontrast 1mm axial images were acquired from the pulmonary apices to the posterior costophrenic an gles. Axial 5 mm soft tissue kernel reconstructions were performed as well as 8 mm axial MIP and cor onal and sagittal 5 mm reformations. For radiation dose reduction, the following was used: automate d exposure control, adjustment of mA and/or kV according to patient size. COMPARISON: CT chest 02/27/2019 FINDINGS: Image quality: Excellent. Lower Neck: No lymphadenopathy by size criteria. Thyroid: Visualized thyroid demonstrates no discrete nodules. Axillae: No lymphadenopathy by size criteria. Chest Wall: Unremarkable. Bones: Visualized osseous structures demonstrate no suspicious lesions. Lungs and Airways: No acute consolidation. There are a few scattered pulmonary nodules: -Right middle lobe 0.4 cm nodule (4, 178), stable. -Right middle lobe 0.3 cm nodule (4, 192), stable. -Left lower lobe subpleural 0.6 cm nodule (4, 211), stable. -Left lower lobe 0.2 cm pleural-based nodule (4, 231), stable. Mild dependent atelectasis and scarring are inserted bilaterally. The trachea and central airways are patent. Pleura: No pneumothorax or pleural effusions. Heart: Heart size is at the upper limits of normal. No pericardial effusion. There is an left atrial appendage occluder device. A prosthetic aortic valve is also noted. There is coronary arterial vascu lar calcification. Thoracic Vessels: There is aneurysmal dilatation of the thoracic aorta, with the ascending aorta jesus uring up to 4.1 cm, aortic arch measuring up to 3.4 cm at the apex, proximal descending aorta measuri ng up to 4.1 cm, and descending aorta measuring up to 4.1 cm at the diaphragmatic hiatus. The finding s are similar in size compared to the prior study. Mediastinum and Jolie: No lymphadenopathy by size criteria. Esophagus: No wall thickening. No hiatal hernia. Abdomen: Visualized upper abdomen redemonstrates 3 small hypodense foci within the left hepatic lobe which are too small to characterize but likely represent cysts. IMPRESSION: 1. Stable bilateral pulmonary nodules. The findings are benign given stability over time. 2. Mild aneurysmal dilatation of the thoracic aorta as described. The findings are similar in size to the prior study. Reviewed by: Riki Hwang MD on 02/19/2022 4:02 AM PDT Approved by: Riki Hwang MD on 02/19/2022 4:02 AM PDT Station ID: [id number]
== END 2022-02-18 16:38 | disposition home or self-care (01) ==
LOC: DI 16:37
PROVIDERS: ATTEND Registered Nurse
DX: R91.8 Other nonspecific abnormal finding of lung field (principal); I71.2 Thoracic aortic aneurysm, without rupture

== ENCOUNTER 2022-06-16 12:32 | Outpatient (CLI) | payer MEDICARE, OTHER | END 2022-06-16 12:33 | disposition home or self-care (01) | LOC: LAB 12:32 | PROVIDERS: ATTEND Urology | DX: Z53.9 Procedure and treatment not carried out, unspecified reason (principal) ==

== ENCOUNTER 2022-06-16 12:33 | Outpatient (CLI) | payer MEDICARE, OTHER ==
[2022-06-16 12:58] LABS: CALCIUM 9.1 mg/dL (8.5-10.3); CREATININE 1.3 mg/dL (0.6-1.2); POTASSIUM 3.6 mmol/L (3.5-5.0)
[2022-06-16] MEDS ORDERED: iohexoL-300 100 ML VIAL ONE (13:37)
[2022-06-16] MEDS ORDERED: iohexoL-300 100 ML VIAL IVP ONE (13:55)
--- NOTE | 2022-06-16 18:00 | CT Report ---
PROCEDURE: IVP INDICATIONS: RECURRENT UTI CONTRAST: 140ml Omnipaque 300 TECHNIQUE: After the administration of intravenous contrast, 5 mm thick sections acquired from the diaphragms to the symphysis. 5 mm thick coronal and sagittal reformats were acquired. For radiation dose reducti on, the following was used: automated exposure control, adjustment of mA and/or kV according to lauren ent size. COMPARISON: 02/19/2019. Correlation is made with the prior recent chest CT, 02/18/2022. FINDINGS: Image quality: Excellent. Lung bases: There is a small right-sided pleural effusion. Heart size is normal. Dense mitral valve a nnulus calcification is seen. There is partial visualization of an aortic valve prosthesis. Prominent coronary artery calcification is seen. Urinary system: Both kidneys are normal in size and enhancement. Contrast-filled renal calyces are normal in morphology. Contrast filled portions of both ureters are normal in caliber. Bladder wall thickness is normal. Solid organs: Liver and spleen are normal in size and enhancement. Gallbladder wall does not appear thickened. Biliary system is non dilated. Pancreas enhances normally. No adrenal nodules. Peritoneum and bowel: Bowel loops demonstrate normal wall thickness and caliber. No free fluid or a ir. Diverticulosis can be seen, without beck findings of active diverticulitis. A normal appendix i s incidentally noted. Nodes and vessels: No retroperitoneal or mesenteric adenopathy by size criteria. Aorta and inferior vena cava are normal in size. Atherosclerotic calcification is seen. Abdominal wall: No ventral hernias. Pelvis: No pathologic free pelvic fluid. No inguinal hernias or adenopathy. The prostate is enlarge d, measuring 5.4 cm transversely. Bones: No suspicious bony lesions. No vertebral body compression fractures. Mild levoconvex scolio tic curvature is seen. Relatively prominent lower lumbar spine degenerative changes are seen. Bilate ral L5 pars defects are seen, with minimal L5-S1 anterolisthesis. IMPRESSION: A cause of recurrent UTIs not seen on this study. No stones, masses, or hydronephrosis are identified. No beck bladder wall thickening can be seen. Enlarged prostate. There is a small right-sided pleural effusion, which has developed since the prior CT, 02/18/2022. 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 Normal appendix Levoconvex scoliotic curvature L5 pars defects, with minimal L5-S1 anterolisthesis Focal lower lumbar spine degenerative change Reviewed by: Fox Richardson MD on 06/16/2022 4:58 PM FANTA Approved by: Fox Richardson MD on 06/16/2022 4:58 PM FANTA Station ID: [id number]
== END 2022-06-16 12:34 | disposition home or self-care (01) ==
LOC: DI 12:33
PROVIDERS: ATTEND Urology
DX: N39.0 Urinary tract infection, site not specified (principal); N40.1 Benign prostatic hyperplasia with lower urinary tract symptoms; R33.8 Other retention of urine; J90 Pleural effusion, not elsewhere classified
CPT/HCPCS: 36415; 74178; 80048; Q9967

== ENCOUNTER 2022-06-27 14:42 | Outpatient (CLI) | payer MEDICARE, OTHER | END 2022-06-27 14:43 | disposition home or self-care (01) | LOC: LAB.S 14:42 | PROVIDERS: ATTEND Urology | DX: N42.9 Disorder of prostate, unspecified (principal) | CPT/HCPCS: 36415; 84153 ==

== ENCOUNTER 2023-04-06 08:13 | Outpatient (CLI) | payer MEDICARE, OTHER | END 2023-04-06 08:14 | disposition home or self-care (01) | LOC: DI 08:13 | PROVIDERS: ATTEND Nurse Practitioner Family | DX: R06.09 Other forms of dyspnea (principal); I51.7 Cardiomegaly; I77.810 Thoracic aortic ectasia; I48.91 Unspecified atrial fibrillation; I44.7 Left bundle-branch block, unspecified; Z95.2 Presence of prosthetic heart valve | CPT/HCPCS: 93306 ==

== ENCOUNTER 2023-04-12 15:23 | Outpatient (CLI) | payer MEDICARE, OTHER ==
--- NOTE | 2023-04-12 16:02 | Sleep Patient Instructions ---
Sleep Center Visit Summary - Patient Visit Information Reason for Visit: Initial consultation - Patient Instructions Additional Instructions: You will be completing a sleep study, either an in-lab polysomnography (PSG) or home sleep study (HST). You will follow-up in the sleep care office after the sleep study is completed to hear the results and talk about therapy, if needed. You will be called by our office staff to schedule this appointment, but you may contact us with any questions. - Clinic Information Contact: [facility] [address] [place] [address] [email or web address] T: [phone]
--- NOTE | 2023-04-12 16:06 | SLEEP CARE CONSULTATION ---
Information from patient questionnaire entered by Rajesh Cosme. I have reviewed and concur with the information entered by Rajesh Cosme. This document represents the service I personally performed and the decisions made by me, Aparna Maguire ARNP. History of Present Illness Service Date and Time: 04/12/2023 1523 Reason for Visit: New patient, Previously diagnosed sleep apnea (mild obstructive sleep apnea 2009) Chief Complaint: reports: Excessive daytime sleepiness, Fatigue, Frequent awakenings at night Usual bedtime: 11PM-1AM Time it takes to fall asleep: 10-15MIN Snores at night: No (lives alone, not aware) Number of times waking at night: 1-4 Reasons for waking at night: reports: Bathroom. denies: Choking, Snoring, Gasping for air Toss, Turn, or Twitch while sleeping: No Recalls having dreams: Yes Usually gets out of bed at: 730-9AM Feels refreshed in the morning: Yes (for first couple hours) Morning headache: No Sleepy or fatigued during the day: Yes Ever fallen asleep while driving: Yes (drowsy driving; no accidents) Takes day naps: Yes (4-5 days a week, 20-60 minutes long) Dreams during day naps: No Prior sleep studies: Yes Year and Where: 2009 [facility] Additional HPI information: I had the pleasure of seeing KENIA HAINES today regarding the possibility of him having a sleep disorder. He was last seen in this office in 12/2009 and was documented to have mild obstructive sleep apnea with AHI of 7.3. He is not curr ently on CPAP. His current complaints are excessive daytime sleepiness, fatigue and frequent night awakenings. He has not trouble with going to sleep but will sometimes wake up and not be able to go back to sleep. He lives alone and does not know if he is snoring or having pauses in breathing. He has been having some increasing daytime fatigue and he doctor recommended he come in for evaluation. - Parasomnia Symptoms Ever been unable to move upon waking from sleep: No Walks in sleep: No Talks in sleep: No Ever acted out dreams in sleep: No Ever felt weak in the knees when startled or emotional: No Bothered by creepy, crawly, restless sensations in legs: No Problems with memory or concentration: Yes (sometimes) Subjective Initial [place] Sleepiness Scale score: 4 (04/12/23) Past Medical History Past Medical History: reports: Hypertension, Congestive Heart Failure, Coronary Heart Disease (two stents placed), Arrythmia (Atrial fibrillation), Depression (situational depression in history), GERD, Other (ENLARGED PROSTATE, A FIB; artificial valve (aortic); Watchman placed) Social History The patient's occupation is a RE. Patient is and lives in [place]. Have you smoked in the past 12 months: No Alcohol use: Yes Alcohol amount and frequency: 1-2 2-3 X WEEKS Caffeine use: Yes Caffeine amount and frequency: 2 DAILY Family History Family history of sleep disordered breathing: No (mother and brother with insomnia) Allergies and Home Medications Known drug allergies: No Drug allergies reviewed: Yes Home medication list reviewed: Yes Allergy and home medication list: Allergies No Known Drug Allergies Allergy (Verified 04/11/23 12:48) Home Medications Medication Instructions Recorded Confirmed Last Taken Type Atorvastatin Calcium See Rx Instructions .ROUTE .COMPLEX 08/31/20 04/12/23 Unknown History Finasteride [Proscar] See Rx Instructions .ROUTE .COMPLEX 08/31/20 04/12/23 Unknown History Fluoxetine HCl [Prozac] See Rx Instructions .ROUTE .COMPLEX 08/31/20 04/12/23 Unknown History Losartan Potassium See Rx Instructions .ROUTE .COMPLEX 08/31/20 04/12/23 Unknown History Pantoprazole Sodium [Protonix] See Rx Instructions .ROUTE .COMPLEX 08/31/20 04/12/23 Unknown History Tamsulosin [Flomax] See Rx Instructions .ROUTE .COMPLEX 08/31/20 04/12/23 Unknown History amLODIPine [Norvasc] See Rx Instructions .ROUTE .COMPLEX 08/31/20 04/12/23 Unkn own History Aspirin [Aspirin EC] See Rx Instructions .ROUTE .COMPLEX 04/12/23 04/12/23 Unknown History Bacillus Coagulans [Probiotics] See Rx Instructions .ROUTE .COMPLEX 04/12/23 04/12/23 Unknown History Cyanocobalamin (Vitamin B-12) See Rx Instructions .ROUTE .COMPLEX 04/12/23 04/12/23 Unknown History [Vitamin B12] Furosemide [Lasix] See Rx Instructions .ROUTE .COMPLEX 04/12/23 04/12/23 Unknown History Metoprolol Succinate [Toprol Xl] See Rx Instructions .ROUTE .COMPLEX 04/12/23 04/12/23 Unknown History Multivitamin See Rx Instructions .ROUTE .COMPLEX 04/12/23 04/12/23 Unknown History Mv-Min/FA/Vit K/Lutein/Zeaxant See Rx Instructions .ROUTE .COMPLEX 04/12/23 04/12/23 Unknown History [Preservision Areds 2 Plus Mv] Potassium Chloride [Klor-Con M20] See Rx Instructions .ROUTE .COMPLEX 04/12/23 04/12/23 Unknown History Review of Systems Weight gain over past 5 years: 5-10 Cardiovascular: reports: high blood pressure, irregular heart rate or pulse, leg or foot swelling Gastrointestinal: denies: heartburn Urinary: reports: frequency, urgency Neurological: denies: headaches Psychiatric: denies: anxiety, depression Ear/Nose/Throat: reports: tonsillectomy Endocrine: reports: sluggishness, increased urination Musculoskeletal: reports: joint pain, back pain Physical Exam Vital signs obtained and entered by: RAJESH Leyva MA Blood Pressure: 122/70 (LWFT ARM) Cuff size: regular Heart Rate: 70 O2 Saturation: 99 Height: 6 ft Weight: 225 lb 6.4 oz Body Mass Index: 30.5 BMI Classification: Obese Neck circumference: 17 Mouth and throat: narrow oropharynx Soft palate: long Hard palate: normal Uvula: normal Uvula visualization: 25% Mallampati Class III Tongue: enlarged in size with teeth lucas on lateral edges Tonsils: absent bilaterally Neck: normal w/o lymphadenopathy or thyromegaly Heart: irregular rhythm Lungs: clear bilaterally Impression and Plan 1. Suspected Obstructive Sleep Apnea-Hypopnea Syndrome, as previously diagnosed and as suggested by a history of frequent awakening during the night, cognitive impairment, and excessive daytime sleepiness. He has a history of CHF, Atrial fibrillation and CHD. Narrow oropharynx and obesity are common predisposing factors for obstructive sleep apnea-hypopnea syndrome. I recommend proceeding to polysomnography to confirm the diagnosis and to assess severity. If the patient has significant sleep disordered breathing, a manual CPAP titration study will also be performed to find the optimal treatment pressure. I informed the patient of what the sleep studies involve and after some discussion, obtained agreement to proceed. The pathophysiology of obstructive sleep apnea-hypopnea syndrome was discussed with the patient and health risks of cardiovascular and cerebrovascular disease if not treated. Risks of drowsy driving discussed in detail and patient advised to avoid long distance driving and to chain puller at the first sign of drowsiness. Patient agreed to plan. * Schedule polysomnography. * Avoid long distance driving or driving when feeling sleepy. * Avoid alcohol, sedative and muscle relaxant around bedtime. * Attempt to lose weight. * Review instructions provided by trained office staff on how to prepare for the sleep study. * Return for follow-up after sleep study completed. Counseling Topics: Weight loss health impact Plan: PSG Visit Type: In Office Time Spent with Patient (minutes): 31 Provider Statement: I spent 100% of the Face to Face Visit with the patient with greater than 50% spent counseling the patient and coordination of care.
[2023-04-12 16:09] VITALS: BP 122/70; O2SAT 99
== END 2023-04-12 15:24 | disposition home or self-care (01) ==
LOC: SC 15:23
PROVIDERS: ATTEND Nurse Practitioner Family
DX: G47.33 Obstructive sleep apnea (adult) (pediatric) (principal); I48.91 Unspecified atrial fibrillation; I11.0 Hypertensive heart disease with heart failure; I50.9 Heart failure, unspecified; I25.10 Atherosclerotic heart disease of native coronary artery without angina pectoris; E66.9 Obesity, unspecified; Z68.30 Body mass index [BMI] 30.0-30.9, adult
CPT/HCPCS: 99203; G0463; 99212

== ENCOUNTER 2023-05-30 20:31 | Outpatient (CLI) | payer MEDICARE, OTHER | END 2023-05-30 20:32 | disposition home or self-care (01) | LOC: SC 20:31 | PROVIDERS: ATTEND Nurse Practitioner Family | DX: G47.33 Obstructive sleep apnea (adult) (pediatric) (principal); I48.91 Unspecified atrial fibrillation | CPT/HCPCS: 95810 ==

== ENCOUNTER 2023-06-23 13:31 | Outpatient (CLI) | payer MEDICARE, OTHER ==
--- NOTE | 2023-06-23 14:08 | Sleep Patient Instructions ---
Sleep Center Visit Summary - Patient Visit Information Reason for Visit: Sleep study followup - Patient Instructions Additional Instructions: You are to start Positional therapy to control your sleep apnea. You may obtain positional belts or other commercial devices online. You may also use pillows to position yourself on your side or a T shirt with balls sewn into the back to help keep you on your side to sleep. We would like to follow up with you in a month to check effectiveness of therapy. Please call office to schedule a follow up appointment in the sleep care office in one to two months. - Clinic Information Contact: [facility] [address] [place] [address] [email or web address] T: [phone]
--- NOTE | 2023-06-23 14:13 | SLEEP CARE CONSULTATION ---
Information from patient questionnaire entered by Lesa Cosme. I have reviewed and concur with the information entered by Lesa Cosme. This document represents the service I personally performed and the decisions made by , Aparna Maguire ARNP. History of Present Illness Service Date and Time: 06/23/2023 1331 Initial [place] Sleepiness Scale score: 4 (04/12/23) Current [place] Sleepiness Scale score: 3 (06/23/23) Additional HPI information: KENIA HAINES returns for follow up and results of the recently performed polysomnography. The sleep study showed mild obstructive sleep apnea with an average AHI of 14.1 and radha oxygen saturation of 83%. His cardiac monitoring showed atrial fibrillation with occasional PVCs. I explained the pathophysiology behind obstructive sleep apnea. We then spent quite a bit of time discussing different treatment options. For mild obstructive sleep apnea, surgery and oral appliance are alternatives to nasal CPAP therapy but in moderate or severe cases, nasal CPAP is the most effective and reliable treatment. I reviewed the impact of weight changes on sleep apnea and strongly recommended losing weight. After some discussion, the patient opted to go with positional therapy. Patient counseled not drink alcohol less than 4 hours before bedtime as it can increase snoring and apnea. Patient was cautioned about risks of drowsy driving until sleepiness symptoms resolve. Patient denies drowsy driving. Sleep Study - Results Type of Sleep Study: Polysomnography (COMPLETED 05/30/23) Prior sleep studies: Yes Year and Where: 2009 [facility] Polysomnography/Home Sleep Study results: IMPRESSION: The quality of the study is good. The patient had slightly reduced sleep efficiency due to prolonged awakening in the middle of the night. The sleep architecture was abnormal for sleep fragmentation and lack of slow wave sleep (N3). Respiratory monitoring showed mild obstructive sleep apnea- hypopnea (AHI = 14.1) associated with frequent arousals, oxyhemoglobin desaturation and mild hypoxia (radha oxygen saturation of 83%). The respiratory events occurred almost exclusively during supine sleep AHI = 54.1; non-supine = 3.82). Snore was occasional and light in intensity. There was no significant periodic leg movement of sleep. Cardiac rhythm was atrial fibrillation with occasional premature ventricular contractions. No abnormal behavior (parasomnia) observed during the night. Allergies and Home Medications Known drug allergies: No Drug allergies reviewed: Yes Home medication list reviewed: Yes (antibiotics for hand laceration) Allergy and home medication list: Allergies No Known Drug Allergies Allergy (Verified 06/21/23 12:09) Review of Systems Review of systems same as previous: Yes (NO CHANGE; left hand laceration over the weekend) Physical Exam Vital signs obtained and entered by: LESA Leyva MA Blood Pressure: 142/90 (LEFT ARM) Cuff size: regular Heart Rate: 78 O2 Saturation: 97 Height: 6 ft Weight: 232 lb Body Mass Index: 31.4 BMI Classification: Obese Impression and Plan 1. Obstructive Sleep Apnea-Hypopnea Syndrome, mild, with lowest oxygen saturation of 83%. Obviously this is the cause of the patients symptoms of unrefreshed sleep, and excessive daytime sleepiness. Positive pressure therapy could benefit hypertension, CHF, CHD, Afib, depression and gastric reflux. Since patients apnea is primarily in supine position, patient advised to try positional therapy and agreed with plan. He is also advised to lose weight as this will reduce snoring and apnea. An oral appliance can also be used for snoring but often is not covered by insurance. Follow up is scheduled for one month to check effectiveness and to see if we need to do any changes. 2. Hypoxemia, mild, with a radha oxygen saturation of 83% and 8.6 minutes spent under 90%. The baseline oxygen saturation was normal with an average oxygen saturation of 92%. 3. Atrial fibrillation. Atrial fibrillation with occasional PVCs during sleep study. Patient has a history of atrial fibrillation, CHF and CHD. He is followed by cardiology. He was advised to continue with followups as needed. 4. Obesity, unspecified. Currently patients BMI is 31.4. Obesity increases the risk of apnea, CPAP pressure requirements and overall health risks especially cardiovascular and diabetes. Thus patient is advised to lose weight. * Nasal auto CPAP therapy, pressure at 4-15 cm H2O. * Attempt to lose weight. * Avoid alcohol consumption near bedtime. * Avoid supine sleep until using CPAP. * The patient is again cautioned about driving until sleepiness completely resolves. * Return one month after CPAP obtained. I will assess response to therapy and compliance at that time. Counseling Topics: Sleeping position, Weight loss health impact Follow up with Sleep Care in: 1-2 months Visit Type: In Office Time Spent with Patient (minutes): 23 Provider Statement: I spent 100% of the Face to Face Visit with the patient with greater than 50% spent counseling the patient and coordination of care.
[2023-06-23 14:16] VITALS: BP 142/90; O2SAT 97
== END 2023-06-23 13:32 | disposition home or self-care (01) ==
LOC: SC 13:31
PROVIDERS: ATTEND Nurse Practitioner Family
DX: G47.33 Obstructive sleep apnea (adult) (pediatric) (principal); R09.02 Hypoxemia; I48.91 Unspecified atrial fibrillation; E66.9 Obesity, unspecified; Z68.31 Body mass index [BMI] 31.0-31.9, adult
CPT/HCPCS: 99213; G0463; 99212

== ENCOUNTER 2023-08-03 12:53 | Outpatient (CLI) | payer MEDICARE, OTHER ==
--- NOTE | 2023-08-03 13:14 | Sleep Patient Instructions ---
Sleep Center Visit Summary - Patient Visit Information Reason for Visit: 6 weeks positional therapy follow-up - Patient Instructions Additional Instructions: You are being started on CPAP therapy with pressure setting at 4-15 cmH2O. You will need to call the sleep care office to set up your follow up once you have your APAP machine and we will schedule a visit to check compliance and response to therapy at that time. You may call the office with any concerns about pressure feeling too low or too much for adjustment, if needed. You should contact DME supplier for any questions or concerns about mask or equipment. Please call office to schedule a follow up appointment in the sleep care office one month after obtaining new device. - Clinic Information Contact: [facility] [address] [place] [address] [email or web address] T: [phone]
--- NOTE | 2023-08-03 13:17 | SLEEP CARE CONSULTATION ---
Information from patient questionnaire entered by Rajesh Cosme. I have reviewed and concur with the information entered by Rajesh Cosme. This document represents the service I personally performed and the decisions made by me, Aparna Maguire ARNP. History of Present Illness Service Date and Time: 08/03/2023 1253 Previous diagnosis: Mild, Obstructive Sleep Apnea-Hypopnea Syndrome AHI: 14.1 (on 05/30/23) Reason for follow up: other (6 WEEK F/U POSITIONAL) Prior sleep studies: Yes Year and Where: 2009 [facility] HPI additional information: KENIA HAINES was diagnosed to have mild, AHI 14.1, obstructive sleep apnea- hypopnea syndrome and returned today for positional therapy six week follow-up. Sleep Study - Results Prior sleep studies: Yes Year and Where: 2009 [facility] Subjective On therapy, patient: reports: other (He wakes up feeling rested but then he feels really tired; still taking naps). denies: drowsiness while driving Initial [place] Sleepiness Scale score: 4 (04/12/23) Current [place] Sleepiness Scale score: 7 (08/03/23) Allergies and Home Medications Known drug allergies: No Drug allergies reviewed: Yes Home medication list reviewed: Yes (no changes) Allergy and home medication list: Allergies No Known Drug Allergies Allergy (Verified 08/01/23 16:21) Review of Systems Review of systems same as previous: Yes (NO CHANGE) Physical Exam Vital signs obtained and entered by: RAJESH Leyva MA Blood Pressure: 123/65 (LEFT ARM) Cuff size: regular Heart Rate: 85 O2 Saturation: 96 Height: 6 ft Weight: 229 lb 14.4 oz Body Mass Index: 31.1 BMI Classification: Obese Impression and Plan 1. Obstructive Sleep Apnea-Hypopnea Syndrome, mild. Using positional therapy, the patient has not noticed an improvement of his sleep. He would like to try the CPAP therapy to see if he can get better rest. He will be started on nasal autoCPAP therapy with pressure set at 4-15 cmH2O. A manual titration study will be completed if unable to find optimal treatment pressure with office adjustments. Compliance guidelines also reviewed. A copy of compliance guidelines will be given for reference at check out. Because the apnea is more severe supine, I instructed to avoid sleeping supine using pillow positioning until able to start CPAP use. Patient's apnea severity and rationale for treatment to reduce apnea, improve sleep quality and reduce cardiovascular and cerebrovascular events was reviewed. 2. Obesity, unspecified. Currently patients BMI is 31.1. Obesity increases the risk of apnea, CPAP pressure requirements and overall health risks especially cardiovascular and diabetes. Thus patient is advised to lose weight. * Nasal auto CPAP therapy, pressure at 4-15 cm H2O. * Attempt to lose weight. * Avoid alcohol consumption near bedtime. * Avoid supine sleep until using CPAP. * The patient is again cautioned about driving until sleepiness completely resolves. * Return one month after CPAP obtained. I will assess response to therapy and compliance at that time. Counseling Topics: Sleeping position, Weight loss health impact Prescriptions: Auto CPAP Follow up with Sleep Care in: other (Compliance followup) Visit Type: In Office Time Spent with Patient (minutes): 20 Provider Statement: I spent 100% of the Face to Face Visit with the patient with greater than 50% spent counseling the patient and coordination of care.
[2023-08-03 13:21] VITALS: BP 123/65; O2SAT 96
== END 2023-08-03 12:54 | disposition home or self-care (01) ==
LOC: SC 12:53
PROVIDERS: ATTEND Nurse Practitioner Family
DX: G47.33 Obstructive sleep apnea (adult) (pediatric) (principal); E66.9 Obesity, unspecified; Z68.31 Body mass index [BMI] 31.0-31.9, adult
CPT/HCPCS: 99213; G0463; 99212

== ENCOUNTER 2023-09-28 13:30 | Outpatient (CLI) | payer MEDICARE, OTHER ==
--- NOTE | 2023-09-28 13:54 | Sleep Patient Instructions ---
Sleep Center Visit Summary - Patient Visit Information Reason for Visit: First compliance follow-up - Patient Instructions Additional Instructions: You were here for follow up of CPAP therapy. You will be continued on CPAP therapy with pressure at 13-16 cmH2O. Please let us know if the pressure change is uncomfortable and we can make further adjustments of the pressure. You should follow up with sleep care in 1-2 months. You may contact us sooner for any questions or concerns. - Clinic Information Contact: [facility] [address] [place] [address] [email or web address] T: [phone]
--- NOTE | 2023-09-28 13:57 | SLEEP CARE CONSULTATION ---
Information from patient questionnaire entered by Rajesh Cosme. I have reviewed and concur with the information entered by Rajesh Cosme. This document represents the service I personally performed and the decisions made by me, Aparna Maguire ARNP. History of Present Illness Service Date and Time: 09/28/2023 1330 Previous diagnosis: Mild, Obstructive Sleep Apnea-Hypopnea Syndrome AHI: 14.1 (on 05/30/23) Reason for follow up: first compliance Equipment type: CPAP (RESMED Airsense 10, S/U 08/16/23) Equipment obtained from: [facility] (getting supplies) Mask style: Nasal pillows Mask brand: Respironics (20/20 [employer]wear) Backup mask available: No (will keep old mask when replaced) Last cushion change: yesterday Prior sleep studies: Yes Year and Where: 2009 [facility] Type of Sleep Study: Polysomnography (COMPLETED 05/30/23) HPI additional information: KENIA HAINES was diagnosed to have mild, AHI 14.1, obstructive sleep apnea- hypopnea syndrome and returned today for CPAP therapy first compliance follow- up. Sleep Study - Results Type of Sleep Study: Polysomnography (COMPLETED 05/30/23) Prior sleep studies: Yes Year and Where: 2009 [facility] CPAP Compliance Data - Data Reviewed with Patient Average duration of nightly device use: 5 HRS 23 MINS Compliance rate %: 77 (08/16/23-09/14/23; 24/30 days used) Current pressure setting (cmH2O): 4-15 (median 10.6, avg 12.9, max 14) Average residual AHI: 11.2 (unknown 3.5) Central apnea: 2.7 Obstructive apnea: 3.2 Hypopnea: 1.7 Average large leak: 16.7 L/min Subjective Missed days of use due to: reports: other (power outage affected machine, stopped working for couple days; checked at [facility] as ok) Patient concerns: reports: mask leak noise (occasional), dry mouth, nose, throat, other (headaches, occasional). denies: aerophagia, mask discomfort, air blowing in eyes, condensation in mask/hose, nasal congestion, epistaxis Observed to snore while using device: No Current pressure setting perceived as: comfortable On therapy, patient: reports: other (still feeling extremely tired most of the time). denies: drowsiness while driving Initial [place] Sleepiness Scale score: 4 (04/12/23) Current [place] Sleepiness Scale score: 11 (09/28/23) Allergies and Home Medications Known drug allergies: No Drug allergies reviewed: Yes Home medication list reviewed: Yes (no changes) Allergy and home medication list: Allergies No Known Drug Allergies Allergy (Verified 09/26/23 10:43) Review of Systems Review of systems same as previous: Yes (NO CHANGE) Physical Exam Vital signs obtained and entered by: RAJESH Leyva MA Blood Pressure: 141/81 (LEFT ARM) Cuff size: regular Heart Rate: 74 O2 Saturation: 98 Height: 6 ft Weight: 237 lb Body Mass Index: 32.1 BMI Classification: Obese Impression and Plan 1. Obstructive Sleep Apnea-Hypopnea Syndrome, mild, with good treatment compliance and fair apnea control with elevated residual AHI. Patient is tolerating using the CPAP and wearing the mask but he continues to feel tired during the day. Currently his pressure settings are are ineffective for controlling his sleep apnea. We discussed changing his pressure and/or possibly doing a titration study. He would like to try an initial adjustment and then revisit the possibility of a titration study at the next follow-up. The patients pressure will be changed to autoCPAP 13-16 cmH20 for elevation of residual AHI. Patient advised to contact me if pressure change is uncomfortable so that it can be adjusted. Goals for apnea control discussed. Patient's apnea severity and rationale for treatment to reduce apnea, improve sleep quality and reduce cardiovascular and cerebrovascular events was reviewed. 2. Obesity, unspecified. Currently patients BMI is 32.1. Obesity increases the risk of apnea, CPAP pressure requirements and overall health risks especially cardiovascular and diabetes. Thus patient is advised to lose weight. * Change auto CPAP pressure to 13-16 cmH2O * Notify me if snoring with mask or feeling that the pressure is too much or too little * Attempt to lose weight * Call this office if any problems using CPAP * Return for follow up in 1-2 months, or sooner if concerns arise Adjust device pressure to (cmH2O): 13-16 Counseling Topics: Spare mask, Weight loss health impact Follow up with Sleep Care in: 1-2 months Visit Type: In Office Time Spent with Patient (minutes): 20 Provider Statement: I spent 100% of the Face to Face Visit with the patient with greater than 50% spent counseling the patient and coordination of care.
[2023-09-28 14:22] VITALS: BP 141/81; O2SAT 98
== END 2023-09-28 13:31 | disposition home or self-care (01) ==
LOC: SC 13:30
PROVIDERS: ATTEND Nurse Practitioner Family
DX: G47.33 Obstructive sleep apnea (adult) (pediatric) (principal); E66.9 Obesity, unspecified; Z68.32 Body mass index [BMI] 32.0-32.9, adult
CPT/HCPCS: 99213; G0463; 99212

== ENCOUNTER 2023-11-16 12:49 | Outpatient (CLI) | payer MEDICARE, OTHER ==
--- NOTE | 2023-11-16 13:16 | Sleep Patient Instructions ---
Sleep Center Visit Summary - Patient Visit Information Reason for Visit: 6-week follow-up - Patient Instructions Additional Instructions: You were here for follow up of CPAP therapy. You will be continued on CPAP therapy with pressure at 13-16 cmH2O. I am sending a mask home with you to try. ResMed AirFit F20, large cushion. You should follow up with sleep care in 1-2 months. You may contact us sooner for any questions or concerns. - Clinic Information Contact: [facility] [address] [place] [address] [email or web address] T: [phone]
--- NOTE | 2023-11-16 13:25 | SLEEP CARE CONSULTATION ---
Information from patient questionnaire entered by Rajesh Cosme. I have reviewed and concur with the information entered by Rajesh Cosme. This document represents the service I personally performed and the decisions made by me, Aparna Maguire ARNP. History of Present Illness Service Date and Time: 11/16/2023 1249 Previous diagnosis: Mild, Obstructive Sleep Apnea-Hypopnea Syndrome AHI: 14.1 (on 05/30/23) Reason for follow up: other (6 WEEK F/U) Equipment type: CPAP (RE) Equipment obtained from: [employer] (can't get good responses) Mask style: Nasal pillows Mask brand: Resmed (AirFit P30i) Backup mask available: No Prior sleep studies: Yes Year and Where: 2009 [facility] Type of Sleep Study: Polysomnography HPI additional information: KENIA HAINES was diagnosed to have mild, AHI 14.1, obstructive sleep apnea-hyp opnea syndrome and returned today for CPAP therapy six week after pressure change follow-up. Sleep Study - Results Type of Sleep Study: Polysomnography Prior sleep studies: Yes Year and Where: 2009 [facility] CPAP Compliance Data - Data Reviewed with Patient Average duration of nightly device use: 3 HRS 32 MINS Compliance rate %: 11 (09/30/23-11/12/23) Current pressure setting (cmH2O): 13-16 Average residual AHI: 9.7 Subjective Patient concerns: reports: air blowing in eyes, mask leak noise, nasal conges tion, dry mouth, nose, throat, other (headaches). denies: aerophagia, mask discomfort, condensation in mask/hose, epistaxis Observed to snore while using device: No Current pressure setting perceived as: comfortable On therapy, patient: reports: other (noted improvement until mask stopped working for him). denies: drowsiness while driving Initial [place] Sleepiness Scale score: 4 (04/12/23) Current [place] Sleepiness Scale score: 7 (11/16/23) Allergies and Home Medications Known drug allergies: No Drug allergies reviewed: Yes Home medication list reviewed: Yes (D-Mannose; stopped atorvastatin) Allergy and home medication list: Allergies No Known Drug Allergies Allergy (Verified 11/14/23 09:36) Review of Systems Review of systems same as previous: Yes (NO CHANGE) Physical Exam Vital signs obtained and entered by: RAJESH Leyva MA Blood Pressure: 116/70 (RIGHT ARM) Cuff size: regular Heart Rate: 86 O2 Saturation: 94 Height: 6 ft Weight: 226 lb 3.2 oz Body Mass Index: 30.7 BMI Classification: Obese Impression and Plan 1. Obstructive Sleep Apnea-Hypopnea Syndrome, mild, with poor treatment compliance and fair apnea control with elevated residual AHI. On CPAP therapy, the patient has better sleep quality and is more rested overall. He has not been able to use his machine because the mask was not sealing and his DME would not help him with it. He is frustrated with the DME's response to his needs. I fit him to a Resmed Airfit F20, large cushion, to try at home. I will have him return in 1-2 months to see if this worked better and we can change him to a full face mask setup. I will wait until next visit to revisit his AHI since he has not been able to use it for 3 weeks. There was some improvement of his residual AHI with the pressure change at last visit. Patient advised to contact me if pressure change is uncomfortable so that it can be adjusted. Goals for apnea control discussed. Patient's apnea severity and rationale for treatment to reduce apnea, improve sleep quality and reduce cardiovascular and cerebrovascular events was reviewed. I also reviewed the benefit of consistent device use of CPAP for hypertension, cardiac disease (CHF, CHD), arrhythmia, diabetes. 2. Obesity, unspecified. Currently patients BMI is 30.7. Obesity increases the risk of apnea, CPAP pressure requirements and overall health risks especially cardiovascular and diabetes. Thus patient is advised to lose weight. * Continue auto CPAP pressure at 13-16 cmH2O * Try AirFit F20 mask * Notify me if snoring with mask or feeling that the pressure is too much or too little * Attempt to lose weight * Call this office if any problems using CPAP * Return for follow up in 1-2 months, or sooner if concerns arise Mask provided: Yes Counseling Topics: Weight loss health impact Follow up with Sleep Care in: 1-2 months Visit Type: In Office Time Spent with Patient (minutes): 23 Provider Statement: I spent 100% of the Face to Face Visit with the patient with greater than 50% spent counseling the patient and coordination of care.
[2023-11-16 13:35] VITALS: BP 116/70; O2SAT 94
== END 2023-11-16 12:50 | disposition home or self-care (01) ==
LOC: SC 12:49
PROVIDERS: ATTEND Nurse Practitioner Family
DX: G47.33 Obstructive sleep apnea (adult) (pediatric) (principal); E66.9 Obesity, unspecified; Z68.30 Body mass index [BMI] 30.0-30.9, adult
CPT/HCPCS: 99213; G0463; 99212

== ENCOUNTER 2023-12-29 14:09 | Outpatient (CLI) | payer MEDICARE, OTHER ==
--- NOTE | 2023-12-29 14:44 | Sleep Patient Instructions ---
Sleep Center Visit Summary - Patient Visit Information Reason for Visit: 6-week follow-up for CPAP therapy - Patient Instructions Additional Instructions: You were here for follow up of CPAP therapy. You will be continued on CPAP therapy with pressure at 13-16 cmH2O. I have written an order to get an oral appliance. A list of dentist certified in these oral appliances was supplied to you. You should follow up with sleep care in 3 months. You may contact us sooner for any questions or concerns. - Clinic Information Contact: [facility] [address] [place] [address] [email or web address] T: [phone]
--- NOTE | 2023-12-29 14:52 | SLEEP CARE CONSULTATION ---
Information from patient questionnaire entered by Rajesh Cosme. I have reviewed and concur with the information entered by Rajesh Cosme. This document represents the service I personally performed and the decisions made by me, Aparna Maguire ARNP. History of Present Illness Service Date and Time: 12/29/2023 1409 Previous diagnosis: Mild, Obstructive Sleep Apnea-Hypopnea Syndrome AHI: 14.1 (on 05/30/23) Reason for follow up: other (6 WEEK F/U) Equipment type: CPAP (RESMED Airsense 10, s/u 07/2023) Equipment obtained from: [employer] (can't get good responses) Mask style: Nasal pillows Prior sleep studies: Yes Year and Where: 2009 [facility] Type of Sleep Study: Polysomnography HPI additional information: KENIA HAINES was diagnosed to have mild, AHI 14.1, obstructive sleep apnea- hypopnea syndrome and returned today for CPAP therapy six week follow-up. Sleep Study - Results Type of Sleep Study: Polysomnography Prior sleep studies: Yes Year and Where: 2009 [facility] CPAP Compliance Data - Data Reviewed with Patient Average duration of nightly device use: 1 HRS 13 MINS Compliance rate %: 5 (-12/26/23) Current pressure setting (cmH2O): 13-16 Average residual AHI: 2.9 Subjective Missed days of use due to: reports: mask issues Patient concerns: reports: mask discomfort, air blowing in eyes, mask leak noise. denies: aerophagia, condensation in mask/hose, nasal congestion, dry mouth, nose, throat, epistaxis Observed to snore while using device: No Current pressure setting perceived as: too high On therapy, patient: reports: other (still struggling to wear mask due to discomfort). denies: drowsiness while driving Initial [place] Sleepiness Scale score: 4 (04/12/23) Current [place] Sleepiness Scale score: 6 (12/29/23) Allergies and Home Medications Known drug allergies: No Drug allergies reviewed: Yes Home medication list reviewed: Yes (no changes) Allergy and home medication list: Allergies No Known Drug Allergies Allergy (Verified 12/27/23 14:30) Review of Systems Review of systems same as previous: Yes (NO CHANGE) Physical Exam Vital signs obtained and entered by: RAJESH Leyva MA Blood Pressure: 138/64 (RIGHT ARM) Cuff size: regular Heart Rate: 73 O2 Saturation: 98 Height: 6 ft Weight: 232 lb 12.8 oz Body Mass Index: 31.6 BMI Classification: Obese Impression and Plan 1. Obstructive Sleep Apnea-Hypopnea Syndrome, mild, with poor treatment com pliance and good apnea control. He tried the ResMed F20 but it was not comfortable for him and he is back to using his nasal pillows mask. This mask is just not comfortable and his compliance is low. I showed him other masks and gave him a [employer] FX and AirFit nasal cushion to try at home. I reviewed his last sleep study and although he has severe apnea events when on his back, he is in a normal range of his AHI when sleeping nonsupine. I encouraged him to sleep on his sides whenever possible if he is unable to use his CPAP. He voiced understanding. We also reviewed other modalities for treatment and he felt he may have success with the oral appliance and positional therapy in tandem. I gave him a prescription to look into the oral appliance and he will call to make followup appointment once he is able to get this made or if he has a change in therapy. Patient's apnea severity and rationale for treatment to reduce apnea, improve sleep quality and reduce cardiovascular and cerebrovascular events was reviewed. I also reviewed the benefit of consistent device use of CPAP for hypertension, cardiac disease (CHF, CHD), arrhythmia, diabetes. 2. Obesity, unspecified. Currently patients BMI is 31.6. Obesity increases the risk of apnea, CPAP pressure requirements and overall health risks especially cardiovascular and diabetes. Thus patient is advised to lose weight. * Continue auto CPAP pressure at 13-16 cmH2O * Positional therapy when unable to tolerate CPAP * Oral appliance * Notify me if snoring with mask or feeling that the pressure is too much or too little * Attempt to lose weight * Call this office if any problems using CPAP * Return for follow up in 3 months, or sooner if concerns arise 4 Counseling Topics: Spare mask, Weight loss health impact Prescriptions: Other (Oral Appliance) Follow up with Sleep Care in: 3 months Visit Type: In Office Time Spent with Patient (minutes): 28 Provider Statement: I spent 100% of the Face to Face Visit with the patient with greater than 50% spent counseling the patient and coordination of care.
[2023-12-29 14:53] VITALS: BP 138/64; O2SAT 98
== END 2023-12-29 14:10 | disposition home or self-care (01) ==
LOC: SC 14:09
PROVIDERS: ATTEND Nurse Practitioner Family
DX: G47.33 Obstructive sleep apnea (adult) (pediatric) (principal); E66.9 Obesity, unspecified; Z68.31 Body mass index [BMI] 31.0-31.9, adult
CPT/HCPCS: 99213; G0463; 99212